=== PATIENT | female | born 1985 | race Two or more races ===

== ENCOUNTER 2017-11-24 10:51 | Emergency (ER) | payer SELFPAY, MEDICAID ==
[2017-11-24 11:14] LABS: URINE HCG POC HCG NEGATIVE (Negative)
[2017-11-24 11:47] LABS: ADD MAN DIFF? NO
[2017-11-24 11:51] LABS: BASO # 0.1 x10^3/uL (0.0-0.2); BASO % 1 % (0-3); EOS # 0.1 x10^3/uL (0.0-0.7); EOS % 2 % (0-3); HEMOGLOBIN 11.5 g/dL (12.0-15.5); LYMPH # 1.4 x10^3/uL (1.0-4.8); LYMPH % 16 % (24-48); MEAN CORPUSCULAR HEMOGLOBIN 29 pg (25-35); MEAN CORPUSCULAR HGB CONC 34 g/dL (31-37); MEAN CORPUSCULAR VOLUME 86 fL (79-100); MONO # 0.4 x10^3/uL (0.0-1.1); MONO % 5 % (0-9); NEUT # 6.4 x10^3uL (1.8-7.7); NEUT % 76 % (31-73); PLATELET COUNT 293 x10^3/uL (140-400); RED BLOOD COUNT 3.98 x10^6/uL (3.50-5.40); RED CELL DISTRIBUTION WIDTH 13.3 % (11.5-14.5); WHITE BLOOD COUNT 8.4 x10^3/uL (4.0-11.0)
[2017-11-24] MEDS: ONDANSETRON PF 4 MG/2 ML VIAL. IV ×2 (11:53)
[2017-11-24] MEDS: FAMOTIDINE 20 MG/2 ML VIAL IVP ×2 (11:54)
[2017-11-24 12:36] LABS: ANION GAP 8 (6-14); BLOOD UREA NITROGEN 13 mg/dL (7-20); BUN/CREATININE RATIO 26 (6-20); CARBON DIOXIDE 27 mmol/L (21-32); CHLORIDE 105 mmol/L (98-107); CREATININE 0.5 mg/dL (0.6-1.0); GFR 143.9; GLUCOSE 106 mg/dL (70-99); POTASSIUM 3.9 mmol/L (3.5-5.1); SODIUM 140 mmol/L (136-145)
[2017-11-24 12:45] LABS: ALBUMIN 3.5 g/dL (3.4-5.0); ALBUMIN/GLOBULIN RATIO 0.8 (1.0-1.7); ALK PHOS 85 U/L (46-116); ALT (SGPT) 52 U/L (14-59); AST (SGOT) 21 U/L (15-37); LIPASE 73 U/L (73-393); TOTAL BILIRUBIN 0.3 mg/dL (0.2-1.0)
[2017-11-24] MEDS: fentaNYL PF VIAL 100 MCG/2 ML VIAL IV ×2 (14:05)
[2017-11-24] MEDS ORDERED: LIDO:MAALOX:DONNATAL 1:1:1 15 ML SINGLE DOSE ×2 (14:38)
[2017-11-24] MEDS: LIDO:MAALOX:DONNATAL 1:1:1 15 ML SINGLE DOSE SWSW ×2 (14:48)
== END 2017-11-24 15:05 | disposition home or self-care (01) ==
LOC: ER 10:51
DX: R10.13 Epigastric pain (principal); R11.2 Nausea with vomiting, unspecified; R19.7 Diarrhea, unspecified
CPT/HCPCS: 36415; 80053; 81025; 83690; 85025; 96374; 96375; 99284-25; J2405; J3010; S0028

== ENCOUNTER 2017-11-24 21:07 | Inpatient (IN) | payer SELFPAY ==
[2017-11-24 21:25] LABS: URINE HCG POC HCG NEGATIVE (Negative)
[2017-11-24 21:37] LABS: BILIRUBIN,URINE NEGATIVE (NEG); CLARITY,URINE CLEAR; COLOR,URINE YELLOW; GLUCOSE,URINE NEGATIVE (NEG); NITRITE,URINE NEGATIVE (NEG); PROTEIN,URINE 30 mg/dL (NEG-TRACE); UROBILINOGEN,URINE 0.2 mg/dL (0.2 mg/dL)
[2017-11-24 21:46] LABS: BACTERIA,URINE FEW /HPF (0-FEW); RBC,URINE RARE /HPF (0-2); SQUAMOUS EPITHELIAL CELL,UR MANY /LPF
[2017-11-24] MEDS: IOHEXOL 300 MG/ML 100ML VIAL. IV ×2 (22:00)
[2017-11-24] MEDS ORDERED: CONTRAST GIVEN MC ×2 (22:00)
[2017-11-24 22:11] LABS: ADD MAN DIFF? NO
[2017-11-24 22:14] LABS: BASO % 0 % (0-3); EOS # 0.1 x10^3/uL (0.0-0.7); EOS % 1 % (0-3); HEMATOCRIT 32.7 % (36.0-47.0); HEMOGLOBIN 10.9 g/dL (12.0-15.5); LYMPH # 1.4 x10^3/uL (1.0-4.8); LYMPH % 13 % (24-48); MEAN CORPUSCULAR HEMOGLOBIN 29 pg (25-35); MEAN CORPUSCULAR HGB CONC 33 g/dL (31-37); MEAN CORPUSCULAR VOLUME 85 fL (79-100); MONO # 0.6 x10^3/uL (0.0-1.1); MONO % 5 % (0-9); NEUT # 8.7 x10^3uL (1.8-7.7); NEUT % 80 % (31-73); PLATELET COUNT 275 x10^3/uL (140-400); RED BLOOD COUNT 3.82 x10^6/uL (3.50-5.40); RED CELL DISTRIBUTION WIDTH 13.3 % (11.5-14.5); WHITE BLOOD COUNT 10.8 x10^3/uL (4.0-11.0)
[2017-11-24] MEDS: IV NORMAL SALINE 1000ML BAG 1,000 ML IV ×2 (22:33)
[2017-11-24] MEDS: ONDANSETRON PF 4 MG/2 ML VIAL. IV ×2 (22:34)
[2017-11-24 22:37] LABS: AST (SGOT) 20 U/L (15-37)
[2017-11-24] MEDS: fentaNYL PF VIAL 100 MCG/2 ML VIAL IV ×2 (22:37)
[2017-11-24 22:38] LABS: ALBUMIN 3.4 g/dL (3.4-5.0); ALBUMIN/GLOBULIN RATIO 0.8 (1.0-1.7); ALK PHOS 83 U/L (46-116); ALT (SGPT) 51 U/L (14-59); ANION GAP 11 (6-14); BLOOD UREA NITROGEN 11 mg/dL (7-20); BUN/CREATININE RATIO 18 (6-20); CALCIUM 8.8 mg/dL (8.5-10.1); CARBON DIOXIDE 24 mmol/L (21-32); CHLORIDE 102 mmol/L (98-107); CREATININE 0.6 mg/dL (0.6-1.0); GFR 116.6; GLUCOSE 149 mg/dL (70-99); LIPASE 61 U/L (73-393); POTASSIUM 3.6 mmol/L (3.5-5.1); SODIUM 137 mmol/L (136-145); TOTAL BILIRUBIN 0.4 mg/dL (0.2-1.0); TOTAL PROTEIN 7.7 g/dL (6.4-8.2)
[2017-11-24] MEDS: LIDO:MAALOX:DONNATAL 1:1:1 15 ML SINGLE DOSE SWSW ×2 (22:39)
[2017-11-24] MEDS: FAMOTIDINE 20 MG TABLET. PO ×2 (22:39)
[2017-11-24] MEDS: PANTOPRAZOLE IV PUSH 40 MG VIAL. IVP ×2 (22:41)
[2017-11-25] MEDS: fentaNYL PF VIAL 100 MCG/2 ML VIAL IV ×14 (01:28→16:10)
[2017-11-25] MEDS: PIPERACILLIN/TAZOBACTAM 3.375 GM in IV NORMAL SALINE 50ML 50 ML IV (01:28)
[2017-11-25] MEDS: ONDANSETRON PF 4 MG/2 ML VIAL. IV ×2 (01:28)
[2017-11-25 04:52] LABS: ADD MAN DIFF? NO
[2017-11-25 04:57] LABS: BASO % 0 % (0-3); EOS # 0.2 x10^3/uL (0.0-0.7); EOS % 2 % (0-3); HEMATOCRIT 30.3 % (36.0-47.0); HEMOGLOBIN 10.4 g/dL (12.0-15.5); LYMPH % 20 % (24-48); MEAN CORPUSCULAR HEMOGLOBIN 30 pg (25-35); MEAN CORPUSCULAR HGB CONC 34 g/dL (31-37); MEAN CORPUSCULAR VOLUME 86 fL (79-100); MONO # 0.6 x10^3/uL (0.0-1.1); MONO % 7 % (0-9); NEUT # 6.8 x10^3uL (1.8-7.7); NEUT % 71 % (31-73); PLATELET COUNT 251 x10^3/uL (140-400); RED BLOOD COUNT 3.54 x10^6/uL (3.50-5.40); RED CELL DISTRIBUTION WIDTH 13.7 % (11.5-14.5); WHITE BLOOD COUNT 9.6 x10^3/uL (4.0-11.0)
[2017-11-25 05:12] LABS: ANION GAP 7 (6-14); BLOOD UREA NITROGEN 10 mg/dL (7-20); CALCIUM 7.9 mg/dL (8.5-10.1); CARBON DIOXIDE 26 mmol/L (21-32); CHLORIDE 103 mmol/L (98-107); CREATININE 0.5 mg/dL (0.6-1.0); GFR 143.9; GLUCOSE 119 mg/dL (70-99); POTASSIUM 3.7 mmol/L (3.5-5.1); SODIUM 136 mmol/L (136-145)
[2017-11-25] MEDS ORDERED: fentaNYL PF VIAL 100 MCG/2 ML VIAL IV ×2 (07:15)
[2017-11-25] MEDS ORDERED: MORPHINE SULFATE 2 MG/ML DISP.SYRIN. IV ×2 (07:15)
[2017-11-25] MEDS ORDERED: PROCHLORPERAZINE 10 MG/2 ML VIAL. IV ×2 (07:15)
[2017-11-25] MEDS ORDERED: ONDANSETRON PF 4 MG/2 ML VIAL. IV ×2 (07:15)
[2017-11-25] MEDS ORDERED: LIDOCAINE 1% PF 2 ML VIAL. ID ×2 (07:15)
[2017-11-25] MEDS ORDERED: HYDROmorphone 2 MG/ML VIAL IV ×2 (07:15)
[2017-11-25] MEDS ORDERED: SURGICEL HEMOSTAT 4X8 EACH. ×2 (07:46)
[2017-11-25] MEDS: IV RINGERS,LACTATED 1000ML 1,000 ML IV ×2 (09:14)
[2017-11-25] MEDS ORDERED: LIDOCAINE 2% PF Vial for OR 5 ML VIAL. ×2 (09:23)
[2017-11-25] MEDS ORDERED: ROCURONIUM 50 MG/5 ML VIAL. ×2 (09:23)
[2017-11-25] MEDS ORDERED: SUCCINYLCHOLINE 200 MG/10 ML VIAL. ×2 (09:23)
[2017-11-25] MEDS ORDERED: PROPOFOL 20 ML IV ×2 (09:23)
[2017-11-25] MEDS ORDERED: DEXAMETHASONE SOD PHOS 20 MG/5 ML VIAL. ×2 (09:23)
[2017-11-25] MEDS ORDERED: MIDAZOLAM HCL/PF 2 MG/2 ML VIAL. ×2 (09:24)
[2017-11-25] MEDS ORDERED: fentaNYL PF VIAL 100 MCG/2 ML VIAL ×4 (09:24→12:12)
[2017-11-25] MEDS ORDERED: PHENYLEPHRINE in 0.9% NACL PF 1 MG/10 ML SYRINGE. IV (10:24)
[2017-11-25] MEDS ORDERED: FAMOTIDINE 20 MG/2 ML VIAL ×2 (10:24)
[2017-11-25] MEDS: BUPIVACAINE-EPI 0.25%-1:200000 50 ML VIAL. ×2 (10:54)
[2017-11-25] MEDS: IOHEXOL 300 MG/ML 100ML VIAL. ×2 (10:57)
[2017-11-25] MEDS ORDERED: DESFLURANE 61 TO 120 MINUTES IH ×2 (11:14)
[2017-11-25] MEDS ORDERED: DESFLURANE 31 TO 60 MINUTES IH ×2 (11:14)
[2017-11-25] MEDS ORDERED: NEOSTIGMINE METHYLSULFATE 5 MG/5 ML SYRINGE. ×2 (11:22)
[2017-11-25] MEDS ORDERED: GLYCOPYRROLATE 1 MG/5 ML VIAL. ×2 (11:22)
[2017-11-25] MEDS ORDERED: MORPHINE SULFATE 10 MG/ML VIAL. ×2 (11:30)
[2017-11-25] MEDS ORDERED: KETOROLAC 30 MG/ML INJ FOR OR. INJ ×2 (11:34)
[2017-11-25] MEDS: oxyCODONE/APAP 5/325 1 TAB TABLET PO ×6 (14:42→21:55)
[2017-11-26] MEDS: oxyCODONE/APAP 5/325 1 TAB TABLET PO ×10 (03:11→23:08)
[2017-11-26] MEDS ORDERED: hydrALAZINE 20 MG/ML VIAL. IVP ×2 (12:45)
[2017-11-26] MEDS ORDERED: traMADol 50 MG TABLET PO ×2 (12:45)
[2017-11-26] MEDS: MORPHINE SULFATE 2 MG/ML DISP.SYRIN. IV ×6 (13:01→23:09)
[2017-11-26] MEDS: DOCUSATE SODIUM 100 MG CAPSULE. PO ×2 (13:01)
[2017-11-27] MEDS: MORPHINE SULFATE 2 MG/ML DISP.SYRIN. IV ×2 (03:11)
[2017-11-27] MEDS: oxyCODONE/APAP 5/325 1 TAB TABLET PO ×6 (03:12→20:36)
[2017-11-27 05:26] LABS: ADD MAN DIFF? NO
[2017-11-27 05:27] LABS: BASO % 1 % (0-3); EOS # 0.2 x10^3/uL (0.0-0.7); EOS % 3 % (0-3); HEMATOCRIT 29.6 % (36.0-47.0); HEMOGLOBIN 10.2 g/dL (12.0-15.5); LYMPH # 2.9 x10^3/uL (1.0-4.8); LYMPH % 34 % (24-48); MEAN CORPUSCULAR HEMOGLOBIN 30 pg (25-35); MEAN CORPUSCULAR HGB CONC 34 g/dL (31-37); MEAN CORPUSCULAR VOLUME 86 fL (79-100); MONO # 0.5 x10^3/uL (0.0-1.1); MONO % 6 % (0-9); NEUT # 4.7 x10^3uL (1.8-7.7); NEUT % 56 % (31-73); PLATELET COUNT 248 x10^3/uL (140-400); RED BLOOD COUNT 3.43 x10^6/uL (3.50-5.40); RED CELL DISTRIBUTION WIDTH 13.8 % (11.5-14.5); WHITE BLOOD COUNT 8.4 x10^3/uL (4.0-11.0)
[2017-11-27 06:01] LABS: ANION GAP 7 (6-14); BLOOD UREA NITROGEN 17 mg/dL (7-20); CALCIUM 8.3 mg/dL (8.5-10.1); CARBON DIOXIDE 28 mmol/L (21-32); CHLORIDE 103 mmol/L (98-107); CREATININE 0.7 mg/dL (0.6-1.0); GFR 97.6; GLUCOSE 95 mg/dL (70-99); POTASSIUM 3.5 mmol/L (3.5-5.1); SODIUM 138 mmol/L (136-145)
[2017-11-27] MEDS: ONDANSETRON PF 4 MG/2 ML VIAL. IV ×4 (10:34→20:35)
[2017-11-27] MEDS: POTASSIUM CL 20MEQ D5-0.9%NACL 1,000 ML IV ×2 (14:18)
[2017-11-28] MEDS: POTASSIUM CL 20MEQ D5-0.9%NACL 1,000 ML IV ×4 (01:02→19:36)
[2017-11-28] MEDS: oxyCODONE/APAP 5/325 1 TAB TABLET PO ×6 (01:02→19:37)
[2017-11-28] MEDS: ACETAMINOPHEN 325 MG TABLET. PO ×2 (12:07)
[2017-11-29] MEDS: oxyCODONE/APAP 5/325 1 TAB TABLET PO ×6 (01:22→12:14)
[2017-11-29] MEDS: POTASSIUM CL 20MEQ D5-0.9%NACL 1,000 ML IV ×2 (05:35)
== END 2017-11-29 13:00 | disposition home or self-care (01) | DRG 418 ==
LOC: 4 NORTH 11-25 00:10 → ER 21:07
PROC: 0FT44ZZ Resection of Gallbladder, Percutaneous Endoscopic Approach (ICD-10-PCS; principal; 2017-11-25 10:00)
PROC: 0DTJ4ZZ Resection of Appendix, Percutaneous Endoscopic Approach (ICD-10-PCS; 2017-11-25 10:00)
PROC: BF131ZZ Fluoroscopy of Gallbladder and Bile Ducts using Low Osmolar Contrast (ICD-10-PCS; 2017-11-25 10:00)
DX: K80.00 Calculus of gallbladder with acute cholecystitis without obstruction (principal); N39.0 Urinary tract infection, site not specified; K35.80 Unspecified acute appendicitis; E66.9 Obesity, unspecified; K59.00 Constipation, unspecified; J02.9 Acute pharyngitis, unspecified; K36 Other appendicitis; Z68.39 Body mass index [BMI] 39.0-39.9, adult
CPT/HCPCS: 36415; 74177; 74300; 76705; 80048; 80053; 81001; 81025; 83690; 85025; 87086; 88304; 96374; 96375; 99285; 99285-25; C1769; C9113; J0330; J0690; J1100; J1885; J2250; J2270; J2370; J2405; J2543; J2704; J2710; J3010; J3490; J7030; J7120; Q9967; S0028

== ENCOUNTER 2021-05-10 12:24 | Emergency (ER) | payer SELFPAY ==
[~2021-05-10] VITALS: Ht 160 cm; Wt 90.0 kg
[~2021-05-10 12:24] MED LIST changes: -HYDR-2761 PO; -HYDROmorphone 2 MG/ML VIAL IVP PRN; -IV RINGERS,LACTATED 1000ML 1,000 ML IV SCH; -LIDOCAINE 2% PF 5 ML VIAL. ONE; -MORPHINE SULFATE 2 MG/ML INJ. IVP PRN; -PROCHLORPERAZINE 10 MG/2 ML VIAL. IVP PRN; -PROPOFOL 10 MG/ML (20ML) VIAL. IV ONE; -fentaNYL PF VIAL 100 MCG/2 ML VIAL IVP PRN
[2021-05-10 13:57] LABS: BASO # 0.1 x10^3/uL (0.0-0.2); BASO % 1 % (0-3); EOS # 0.1 x10^3/uL (0.0-0.7); EOS % 1 % (0-3); HEMATOCRIT 28.6 % (36.0-47.0); HEMOGLOBIN 8.6 g/dL (12.0-15.5); LYMPH # 2.5 x10^3/uL (1.0-4.8); LYMPH % 18 % (24-48); MEAN CORPUSCULAR HEMOGLOBIN 20 pg (25-35); MEAN CORPUSCULAR HGB CONC 30 g/dL (31-37); MEAN CORPUSCULAR VOLUME 66 fL (79-100); MONO # 0.7 x10^3/uL (0.0-1.1); MONO % 5 % (0-9); NEUT # 10.4 x10^3/uL (1.8-7.7); NEUT % 76 % (31-73); PLATELET COUNT 669 x10^3/uL (140-400); RED BLOOD COUNT 4.33 x10^6/uL (3.50-5.40); RED CELL DISTRIBUTION WIDTH 17.7 % (11.5-14.5); WHITE BLOOD COUNT 13.7 x10^3/uL (4.0-11.0)
[2021-05-10 14:08] LABS: CALCIUM 8.6 mg/dL (8.5-10.1); CREATININE 0.8 mg/dL (0.6-1.0); GFR 81.6
[2021-05-10 14:14] LABS: ALBUMIN 2.4 g/dL (3.4-5.0); ALBUMIN/GLOBULIN RATIO 0.5 (1.0-1.7); TOTAL BILIRUBIN 0.5 mg/dL (0.2-1.0); TOTAL PROTEIN 7.7 g/dL (6.4-8.2)
[2021-05-10 14:19] LABS: PLT ESTIMATE INCREASED (ADEQUATE)
[2021-05-10 14:20] LABS: ANISOCYTOSIS SLIGHT; HYPOCHROMIA MARKED; MICROCYTOSIS MARKED; OVALOCYTES FEW; POIKILOCYTOSIS SLIGHT
[2021-05-10] MEDS ORDERED: IOHEXOL 300 MG/ML 100ML VIAL. IV ONE (14:30)
[2021-05-10] MEDS ORDERED: CONTRAST GIVEN. MC PRN (14:30)
--- NOTE | 2021-05-10 15:12 | RAD ---
Exam: CT of abdomen and pelvis with contrast INDICATION: Acute onset intractable abdominal pain TECHNIQUE: Sequential axial images through the abdomen and pelvis obtained following the administrati on of 75 mL of Omni 300 IV contrast. Sagittal and coronal reformatted images were reconstructed from the axial data and reviewed. Exposure: One or more of the following in the visualized dose reduction techniques were utilized for this examination: 1. Automated exposure control 2. Adjustment of the MA and/or KV according to patient size 3. Use of iterative of reconstructive technique Comparisons: 11/24/2027 FINDINGS: Heart size is normal. No pericardial effusion. Visualized lung bases are clear. No pleural effusion. Liver, spleen, pancreas, and adrenals are unremarkable. Gallbladder is absent. No perinephric inflammation or hydronephrosis. No renal or ureteral calculi are identified. Bladder is decompressed not well evaluated. Uterus is not enlarged. No abnormal adnexal mass. There is wall thickening involving the sigmoid colon without evidence of acute diverticulitis. Remain [place] of the large and small bowel are unremarkable. Appendix is not identified. No free intra-abdomina l air or fluid. No obstruction. Abdominal aorta has a normal course and caliber. Abdominal vasculature is patent. No enlarged intra-abdominal lymph nodes are identified. No suspicious osseous lesions or acute fractures. IMPRESSION: Wall thickening at the sigmoid colon may represent colitis may be infectious or inflammatory in etiol ogy. Electronically signed by: Elaine Ch MD (05/10/2021 3:10 PM) [facility]
[2021-05-10] MEDS ORDERED: fentaNYL PF VIAL 100 MCG/2 ML VIAL IVP ONE (15:30)
[2021-05-10] MEDS ORDERED: IV NORMAL SALINE 500ML BAG 500 ML IV ONE (15:30)
[2021-05-10 16:22] VITALS: BP 124/59
[2021-05-10] MEDS ORDERED: HYDR-2761 PO (17:02)
--- NOTE | 2021-05-10 17:05 | PHYS DOC ---
Past Medical History Past Medical History: No Pertinent History Additional Past Medical Histor: Crohns disease, rheumatoid arthritis (JAQUELIN DE LEÓN APRN) Past Surgical History: Cholecystectomy (JAQUELIN DE LEÓN APRN) Smoking Status: Never Smoker Alcohol Use: None Drug Use: None (JAQUELIN DE LEÓN APRN) General Adult EDM: Chief Complaint: ABDOMINAL PAIN HPI: HPI: Patient is a 36-year-old female who presents to the emergency for increased abdominal pain after colonoscopy procedure today with GI specialist Dr. Vidal at the outpatient clinic. Patient reports she had a colonoscopy to evaluate her anemia and colitis issues, states that her primary care physician Dr. Trevino have sent her for this GI procedure. Patient denies taking any prescription medications at home, denies any allergies to medications. Reports her last menstrual cycle was 2 weeks ago with normal duration of flow. Denies urinary pressure, pain with urination, or bloody urination. Patient denies vaginal discharge or rashes in her vaginal area. Patient denies chest pain, denies shortness of breath, denies recent fever or chills. Patient states she feels like she might be dehydrated from her bowel prep procedure at home to get ready for her upper and lower GI. Patient reports her pain is a 10 out of 10. Patient denies any nausea. Patient reports her pain hurts all over her abdomen. Patient denies any other physical complaints or physical concerns. (JAQUELIN DE LEÓN APRN) Review of Systems: Review of Systems: 14 body systems of review of systems have been reviewed. See HPI for pertinent positives and negative responses, otherwise all other systems are negative, nonpertinent or noncontributory. Constitutional: Negative except as outlined in HPI above. Skin: Negative except as outlined in HPI above. Eyes: Negative except as outlined in HPI above. HENT: Negative except as outlined in HPI above. Respiratory: Negative except as outlined in HPI above. Cardiovascular: Negative except as outlined in HPI above. GI: Negative except as outlined in HPI above. : Negative except as outlined in HPI above. Musculoskeletal: Negative except as outlined in HPI above. Integument: Negative except as outlined in HPI above. Neurologic: Negative except as outlined in HPI above. Endocrine: Negative except as outlined in HPI above. Lymphatic: Negative except as outlined in HPI above. Psychiatric: Negative except as outlined in HPI above. (JAQUELIN DE LEÓN APRN) Heart Score: C/O Chest Pain: No Risk Factors: Risk Factors: DM, Current or recent (<one month) smoker, HTN, HLP, family history of CAD, obesity. Risk Scores: Score 0 - 3: 2.5% MACE over next 6 weeks - Discharge Home Score 4 - 6: 20.3% MACE over next 6 weeks - Admit for Clinical Observation Score 7 - 10: 72.7% MACE over next 6 weeks - Early Invasive Strategies (JAQUELIN DE LEÓN APRN) Current Medications: Current Medications Medications (Trade) Dose Ordered Sig/Dianna Start Time Stop Time Status Last Admin Dose Admin Fentanyl Citrate (Fentanyl 2ml Vial) 75 mcg 1X ONCE 05/10/21 15:30 05/10/21 15:31 DC 05/10/21 15:45 75 MCG Info (CONTRAST GIVEN -- Rx MONITORING) 1 each PRN DAILY PRN 05/10/21 14:30 05/12/21 14:29 Iohexol (Omnipaque 300 Mg/ml) 75 ml 1X ONCE 05/10/21 14:30 05/10/21 14:31 DC 05/10/21 14:29 75 ML Sodium Chloride 500 ml @ 500 mls/hr 1X ONCE 05/10/21 15:30 05/10/21 16:29 DC 05/10/21 15:45 500 MLS/HR (JAQUELIN DE LEÓN APRN) Allergies: Allergies: Allergies Coded Allergies Type Severity Reaction Last Updated Verified No Known Drug Allergies 05/10/21 No (JAQUELIN DE LEÓN APRN) Physical Exam: PE: Constitutional: Well developed, well nourished, non-toxic appearance. 36-year-old female appears uncomfortable, holding her abdomen, but remains non toxic in appearance HENT: Normocephalic, atraumatic. Eyes: Conjunctiva normal, no discharge. Neck: Normal range of motion. Cardiovascular: Distal cap refill less than 2 seconds, no cyanosis appreciated. Lungs & Thorax: Patient is in no respiratory distress, no adventitious lung sounds appreciated. Abdomen: Bowel sounds hyperactive, soft, no masses, no pulsatile masses. No bruising or skin discoloration of the abdomen. Generalized abdominal pain all 4 quadrants, McBurney's point/psoas sign/South sign/rebound tenderness signed nonspecific, positive pain to palpation all quadrants however no masses appreciated, bowel sounds were hyperactive. Skin: Warm, dry, no erythema, no rash. Back: No tenderness, no CVA tenderness. Extremities: No tenderness, no cyanosis, no clubbing, ROM intact, no edema. Neurologic: Alert and oriented X 3, normal motor function, normal sensory function, no focal deficits noted. Psychologic: Affect normal, judgement normal, mood normal. (JAQUELIN DE LEÓN APRN) Current Patient Data: Labs: Laboratory Tests Test 05/10/21 13:20 White Blood Count 13.7 x10^3/uL (4.0-11.0) H Red Blood Count 4.33 x10^6/uL (3.50-5.40) Hemoglobin 8.6 g/dL (12.0-15.5) L Hematocrit 28.6 % (36.0-47.0) L Mean Corpuscular Volume 66 fL (79-100) L Mean Corpuscular Hemoglobin 20 pg (25-35) L Mean Corpuscular Hemoglobin Concent 30 g/dL (31-37) L Red Cell Distribution Width 17.7 % (11.5-14.5) H Platelet Count 669 x10^3/uL (140-400) H Neutrophils (%) (Auto) 76 % (31-73) H Lymphocytes (%) (Auto) 18 % (24-48) L Monocytes (%) (Auto) 5 % (0-9) Eosinophils (%) (Auto) 1 % (0-3) Basophils (%) (Auto) 1 % (0-3) Neutrophils # (Auto) 10.4 x10^3/uL (1.8-7.7) H Lymphocytes # (Auto) 2.5 x10^3/uL (1.0-4.8) Monocytes # (Auto) 0.7 x10^3/uL (0.0-1.1) Eosinophils # (Auto) 0.1 x10^3/uL (0.0-0.7) Basophils # (Auto) 0.1 x10^3/uL (0.0-0.2) Platelet Estimate Increased (ADEQUATE) Hypochromasia Marked Poikilocytosis Slight Anisocytosis Slight Microcytosis Marked Ovalocytes Few Sodium Level 133 mmol/L (136-145) L Potassium Level 4.0 mmol/L (3.5-5.1) Chloride Level 98 mmol/L (98-107) Carbon Dioxide Level 25 mmol/L (21-32) Anion Gap 10 (6-14) Blood Urea Nitrogen 7 mg/dL (7-20) Creatinine 0.8 mg/dL (0.6-1.0) Estimated GFR (Cockcroft-Gault) 81.6 BUN/Creatinine Ratio 9 (6-20) Glucose Level 96 mg/dL (70-99) Calcium Level 8.6 mg/dL (8.5-10.1) Total Bilirubin 0.5 mg/dL (0.2-1.0) Aspartate Amino Transferase (AST) 22 U/L (15-37) Alanine Aminotransferase (ALT) 91 U/L (14-59) H Alkaline Phosphatase 161 U/L (46-116) H Troponin I Quantitative < 0.017 ng/mL (0.000-0.055) Total Protein 7.7 g/dL (6.4-8.2) Albumin 2.4 g/dL (3.4-5.0) L Albumin/Globulin Ratio 0.5 (1.0-1.7) L Lipase 47 U/L (73-393) L Laboratory Tests 05/10/21 13:20 Laboratory Tests 05/10/21 13:20 Vital Signs: Vital Signs Date Time Temp Pulse Resp B/P (MAP) Pulse Ox O2 Delivery O2 Flow Rate FiO2 05/10/21 16:22 98 124/59 (80) 99 Room Air 05/10/21 12:37 98.3 22 98.3 (JAQUELIN DE LEÓN APRN) EKG: EKG: EKG performed at 1316 by ED nursing staff shows a normal sinus rhythm without other ectopy, KS interval 0.134, QTc interval 0.428, heart rate 96 bpm, no acute STEMI, no ACS, no acute ischemia appreciated, EKG interpreted by ED attending physician Dr. Nixon. (JAQUELIN DE LEÓN APRN) Radiology/Procedures: Radiology/Procedures: PATIENT: DORIS FERREIRACCOUNT: [id number] : 1985 LOCATION: ER AGE: 36 SEX: F EXAM STATUS: REG ER ORD. PHYSICIAN: JAQUELIN DE LEÓN APRN REASON: Acute onset intractable abdominal pain after EGD/colonoscopy procedure toda PROCEDURE: CT ABD PELV W/ IV CONTRST ONLY Exam: CT of abdomen and pelvis with contrast INDICATION: Acute onset intractable abdominal pain TECHNIQUE: Sequential axial images through the abdomen and pelvis obtained following the administration of 75 mL of Omni 300 IV contrast. Sagittal and coronal reformatted images were reconstructed from the axial data and reviewed. Exposure: One or more of the following in the visualized dose reduction techniques were utilized for this examination: 1. Automated exposure control 2. Adjustment of the MA and/or KV according to patient size 3. Use of iterative of reconstructive technique Comparisons: 11/24/2027 FINDINGS: Heart size is normal. No pericardial effusion. Visualized lung bases are clear. No pleural effusion. Liver, spleen, pancreas, and adrenals are unremarkable. Gallbladder is absent. No perinephric inflammation or hydronephrosis. No renal or ureteral calculi are identified. Bladder is decompressed not well evaluated. Uterus is not enlarged. No abnormal adnexal mass. There is wall thickening involving the sigmoid colon without evidence of acute diverticulitis. Remainder of the large and small bowel are unremarkable. Appendix is not identified. No free intra-abdominal air or fluid. No obstruction. Abdominal aorta has a normal course and caliber. Abdominal vasculature is patent. No enlarged intra-abdominal lymph nodes are identified. No suspicious osseous lesions or acute fractures. IMPRESSION: Wall thickening at the sigmoid colon may represent colitis may be infectious or inflammatory in etiology. Electronically signed by: Elaine Truong MD (05/10/2021 3:10 PM) [facility] DICTATED and SIGNED BY: ELAINE TRUONG MD DATE: 05/10/21 [id number] 0 (JAQUELIN DE LEÓN APRN) Course & Med Decision Making: Course & Med Decision Making Pertinent Labs and Imaging studies reviewed. (See chart for details) 36-year-old female, vital signs reviewed, presents to the emergency department with acute onset abdominal pain after colonoscopy. Physical examination concerning for possible bowel perforation, will order CT abdomen pelvis with IV contrast to rule out for bowel prep EGD/colonoscopy procedure done just prior to arrival. EKG, serum labs, urinalysis assay. CT abdomen pelvis nonconcerning for acute bowel perforation, consistent with patient's history of colitis. Lab work nonconcerning. Patient did not give u rinalysis specimen for urinalysis assay, patient was given 1 L of normal saline as labs indicated mild dehydration most likely from bowel prep procedure, fentanyl IV pain medication, this relieved patient's pain to a 0 out of 10 and patient states she is ready to go home. Abdominal pain most likely related to EGD/colonoscopy procedure. Upon reevaluation of the patient, patient remains nontoxic in appearance, is now calm and comfortable in bed, denies any nausea. Discussed with patient will discharge to home with close follow-up with her primary care physician Dr. Acevedo tomorrow or Friday, strict return to ER precautions and concerns. Patient was amenable to this plan. Discussed with th e patient all findings and diagnostic testing as well as the need to follow-up with their primary care provider for further evaluation and treatment or return to the ED if any new or worsening symptoms. Strict return precautions were also discussed at length, the patient voiced understanding and agreement with the discharge planning. The patient was nontoxic in appearance, in no apparent distress, and hemodynamically stable at the time of disposition. (JAQUELIN DE LEÓN APRN) C2C Link Disclaimer: C2C Link Disclaimer: This electronic medical record was generated, in whole or in part, using a voice recognition dictation system. (JAQUELIN DE LEÓN APRN) Departure Departure Impression: Primary Impression: Abdominal pain Qualified Codes: R10.84 - Generalized abdominal pain Disposition: HOME / SELF CARE / HOMELESS Condition: GOOD Referrals: NO PCP (PCP) Patient Instructions: Abdominal Migraine Additional Instructions: You were seen today in the emergency department for abdominal pain after your EGD and colonoscopy procedure. A extensive abdominal work-up was performed in the emergency department, the CT scan of your abdomen did not show any concerning signs of a bowel perforation or any need for immediate surgery. You are lab work did indicate mild dehydration which is most likely related to your bowel prep procedure as we discussed at length about. You were given a liter of normal saline and IV pain medication which relieved your pain. You are reporting no pain or nausea at this time and wished to go home. I feel it is safe for you to go home however I do believe your pain may come back at some level and recommend you take [id number] Tylenol or Motrin for this pain. I am prescribing you a few pain medication pills for severe pain. Please return to the emergency department immediately for increased severe pain that is unrelieved by oral medications or rectal bleeding or sudden onset of nausea or bloody vomitus. Please follow-up with your primary care physician Dr. Acevedo either tomorrow or Friday thank you for visiting our Emergency Department. It was a pleasure taking care of you today in the emergency department and we appreciate you trusting us with your care. If any additional problems come up don't hesitate to return to visit us. Please follow up with your primary care provider so they can plan additional care if needed and know about the problem that you had. If symptoms worsen come back to the Emergency Department. Any concerning symptoms that start such as chest pain, shortness of air, weakness or numbness on one side of the body, running high fevers or any other concerning symptoms return to the ER. EMERGENCY DEPARTMENT GENERAL DISCHARGE INSTRUCTIONS Thank you for coming to [facility] (ED) today and trusting us with you care. We trust that you had a positive experience in our Emergency Department. If you wish to speak to the department management, you may call the Director at [phone]. YOUR FOLLOW UP INSTRUCTIONS ARE FOLLOWS: 1. Do you have a private Doctor? If you do not have a private doctor, please ask for a resource list of physicians or clinics that may be able to assist you with follow up care. 2. The Emergency Physicain has interpreted your x-rays. The X-Ray specialist will also review them. If there is a change in the findings, you will be notified in 48 hours when at all possible. 3. A lab test or culture has been done, your results will be reviewed and you will be notified if you need a change in treatment. ADDITIONAL INSTRUCTIONS AND INFORMATION: 1. Your care today has been supervised by a physician who is specially trained in emergency care. Many problems require more than one evaluation for a complete diagnosis and treatment. We recommend that you schedule your follow up appointment as recommended to ensure complete treatment of you illness or injury. If you are unable to obtain follow up care and continue to have a problem, or if your condition worsens, we recommend that you return to the ED. 2. We are not able to safely determine your condition over the phone nor are we able to give sound medical advice over the phone. For these safety reasons, if you call for medical advice we will ask you to come to the ED for further evaluation. 3. If you have any questions regarding these discharge instructions please call the ED at [phone]. SAFETY INFORMATION: In the interest of safety, wellness, and injury prevention; we encourage you to wear your sealbelt, if you smoke; quite smoking, and we encourage family to use a protective helmet for bicycling and other sporting events that present an increased risk for head injury. IF YOUR SYMPTOMS WORSEN OR NEW SYMPTOMS DEVELOP, OR YOU HAVE CONCERNS ABOUT YOUR CONDITION; OR IF YOUR CONDITION WORSENS WHILE YOU ARE WAITING FOR YOUR FOLLOW UP APPOINTMENT; EITHER CONTACT YOUR PRIMARY CARE DOCTOR, THE PHYSICIAN WHOSE NAME AND NUMBER YOU WERE GIVEN, OR RETURN TO THE ED IMMEDIATELY. Scripts Hydrocodone Bit/Acetaminophen (HYDROCODONE-APAP 5-325 ) 1 Tab Tablet 1 TAB PO PRN Q6HRS PRN for SEVERE PAIN 7-10, #10 TAB 0 Refills Prov: JAQUELIN DE LEÓN APRN 05/10/21 Attending Signature I have participated in the care of this patient and I have reviewed and agree with all pertinent clinical information above including history, exam, and recommendations. (CIERA PALOMARES DO) JAQUELIN DE LEÓN APRN May 10, 2021 17:05 CIERA PALOMARES DO May 10, 2021 17:17
== END 2021-05-10 17:23 | disposition home or self-care (01) ==
LOC: ER 12:24
DX: R10.84 Generalized abdominal pain (principal); Z90.49 Acquired absence of other specified parts of digestive tract
CPT/HCPCS: 36415; 74177; 80053; 83690; 84484; 85025; 93005; 96361; 96374; 99285; J3010; J7040; Q9967

== ENCOUNTER → 2021-05-10 | Day surgery (SDC) | payer SELFPAY ==
[~2021-05-10] VITALS: Ht 167.6 cm; Wt 90.0 kg
[~2021-05-10] MED LIST: HYDR-2761 PO; HYDR-3135 PO; HYDROmorphone 2 MG/ML VIAL IVP PRN; IBUP-1027 PO; IV RINGERS,LACTATED 1000ML 1,000 ML IV SCH; LIDOCAINE 2% PF 5 ML VIAL. ONE; MORPHINE SULFATE 2 MG/ML INJ. IVP PRN; ONDA4TAB7 PO; PROCHLORPERAZINE 10 MG/2 ML VIAL. IVP PRN; PROPOFOL 10 MG/ML (20ML) VIAL. IV ONE; fentaNYL PF VIAL 100 MCG/2 ML VIAL IVP PRN
[2021-05-10 10:19] VITALS: BP 109/67
[2021-05-10 11:41] VITALS: BP 115/63
--- NOTE | 2021-05-10 12:00 | PDOC ---
Date of Service: DATE: 05/10/21 TIME: 11:57 Subjective: Subjective: feels weak Objective: Vital Signs: Vital Signs Date Time Temp Pulse Resp B/P (MAP) Pulse Ox O2 Delivery O2 Flow Rate FiO2 05/10/21 11:41 97.3 81 20 115/63 99 Room Air 97.3 Labs: Laboratory Tests Test 05/10/21 09:26 05/10/21 09:54 Bedside Urine HCG, Qualitative Hcg negative (Negative) SARS-CoV-2 Antigen (Rapid) Negative (NEGATIVE) Physical Exam: Physical Exam: GEN: NAD HEENT: OP clear CV: S1S2 without murmurs, rubs, or gallops RESP: CTAB without wheezing, rhonchi, or crackles ABD: NABS, SNT/ND EXT: No edema NEURO: AAO x 3 Assessment & Plan: Assessment : anemia Plan: EGD and colon today significant for colitis. She and her stated that she had labs drawn with her PCP three days ago b ut do not kno0w results. I asked if she would rather stay in the hospital or if she feels that she can go home. She and her want to discuss privately. I have advised that they go through the ER if she does not feel well to go home is that she can get labs and possibly a CT done. Discussed with nursing Justicifation of Admission Dx: Justifications for Admission: Justification of Admission Dx: N/A FLORENTINO BENJAMIN MD May 10, 2021 12:00
--- NOTE | 2021-05-14 09:09 | PATHOLOGY ---
[facility] Accession Number: [id number] . 01 Material submitted: . PART A: small bowel - SMALL BOWEL BIOPSY PART B: ANTRUM - BX BODY AND ANTRUM. Modifiers: body PART C: esophagus - DISTAL ESOPHAGUS BX. Modifiers: distal PART D: ileum - BX TERMINAL ILEUM. Modifiers: TERMINAL PART E: cecum - CECAL BX PART F: colon - ASCENDING COLON BX. Modifiers: ascending PART G: colon - TRANSVERSE COLON BX. Modifiers: transverse PART H: colon - DESCENDING COLON BX. Modifiers: descending PART I: sigmoid colon - SIGMOID COLON BX PART J: rectum - RECTAL BX . 01 Clinical history: . ANEMIA EGD, COLONOSCOPY COLITIS . 02 Diagnosis: A. Small bowel biopsies: - No significant pathologic abnormalities. . B. Gastric biopsies, gastric body and gastric antrum: - Chronic gastritis, mild. . C. Esophageal biopsies, distal esophagus: - Segments of esophagogastric and gastric mucosa showing chronic inflammation, consistent with reflux changes. . D. Small intestine mucosa, terminal ileum biopsies: - No diagnostic abnormalities. . E. Colonic mucosa, cecal biopsy: - No significant pathologic abnormalities. . F. Colonic mucosa, ascending colon biopsies: - Focal active chronic colitis, mild to moderate, without granulomas or specific features. . G. Colonic mucosa, transverse colon biopsy: - No significant pathologic abnormalities. . H. Colonic mucosa, descending colon biopsies: - Active chronic colitis, moderate, without granulomas or specific features. . I. Colonic mucosa, sigmoid colon biopsy: - Active chronic colitis, marked, without granulomas or specific features, and with extensive ulceration. . J. Colorectal mucosa, rectal biopsy: - Active chronic proctitis, moderate, without granulomas or specific features. LBQ 05/14/2021 0808 Local . 02 Comment: Sections of the duodenal biopsy reveal segments of duodenal and small intestine mucosa. Where best oriented, the mucosal villi show no sprue-like changes of significant inflammatory changes. . Sections of the gastric biopsy reveal multiple segments of gastric antral and gastric antral/body transition mucosa showing congestion and mild chronic inflammation. A properly controlled immunoperoxidase stain for Helicobacter is negative for Helicobacter organisms. . Sections of the distal esophageal biopsy reveal segments of esophagogastric and gastric mucosa showing mild to moderate chronic inflammation. The squamous esophageal mucosa is hyperplastic. The findings are consistent with reflux esophagitis. There is no evidence of Tan's change, dysplasia, or malignancy. . Sections of the terminal ileum biopsy reveal segments of small intestine mucosa focally containing mucosa associated lymphoid tissue. There are no sprue-like changes or significant inflammatory changes. . Sections of the cecal biopsy and transverse colon biopsy show no significant inflammatory changes. Sections of the ascending colon biopsy show focal active chronic colitis without granulomas or specific features. Sections of the descending colon and sigmoid colon biopsies show moderate to marked active chronic colitis without granulomas or specific features. There is extensive ulceration in the sigmoid colon biopsy. Sections of the rectal biopsy show moderate active chronic proctitis without granulomas or specific features. The inflammatory changes in the colon are consistent with chronic inflammatory bowel disease. There is no dysplasia or evidence of malignancy. (JPM/db; 05/11/2021) . Special stain performed: Immunoperoxidase stain for Helicobacter on B1 . 02 Electronically signed: . Pk Miller MD, Pathologist NPI- [id number] . 01 Gross description: . A. The specimen is submitted in formalin, labeled "Dorie Richard, small bowel biopsy". Received are 4 segments of pale harmon tissue ranging in size from 0.2 to 0.5 cm in maximum dimensions. The specimen is submitted in cassette A1. . B. The specimen is submitted in formalin, labeled "Fredi Richardi, biopsy antrum and body". Received are 5 segments of pale harmon tissue ranging in size from 0.2 to 0.5 cm in maximum dimensions. The specimen is submitted in cassette B1. . C. The specimen is submitted in formalin, labeled "Dorie Richard, biopsy distal esophagus". Received are 3 segments of pale harmon tissue ranging in size from 0.2 to 0.4 cm in maximum dimensions. The specimen is submitted in cassette C1. . D. The specimen is submitted in formalin, labeled "GalvezaethanyaFredii, biopsy terminal ileum". Received are 2 segments of pale harmon tissue ranging in size from 0.3 to 0.4 cm in maximum dimensions. The specimen is submitted in cassette D1. . E. The specimen is submitted in formalin, labeled "Galvezamaya, Dorie, cecal biopsy". Received are 2 segments of pale harmon tissue ranging in size from 0.3 to 0.5 cm in maximum dimensions. The specimen is submitted in cassette E1. . F. The specimen is submitted in formalin, labeled "Galvezamaya, Dorie, ascending colon". Received are 2 segments of pale harmon tissue ranging in size from 0.3 to 0.4 cm in maximum dimensions. The specimen is submitted in cassette F1. . G. The specimen is submitted in formalin, labeled "Galvezamaya, Dorie, transverse colon biopsy". Received are 2 segments of pale harmon tissue ranging in size from 0.2 to 0.5 cm in maximum dimensions. The specimen is submitted in cassette G1. . H. The specimen is submitted in formalin, labeled "Galvezamaya, Dorie, descending colon biopsy". Received are 4 segments of pale harmon tissue ranging in size from 0.2 to 0.4 cm in maximum dimensions. The specimen is submitted in cassette H1. . I. The specimen is submitted in formalin, labeled "Galvezamaya, Dorie, sigmoid colon biopsy". Received are 4 segments of pale harmon tissue ranging in size from 0.3 to 0.6 cm in maximum dimensions. The specimen is submitted in cassette I1. . J. The specimen is submitted in formalin, labeled "Galvezamaya, Dorie, rectal biopsy". Received are 2 segments of pale harmon tissue ranging in size from 0.1 to 0.6 cm in maximum dimensions. The specimen is submitted in cassette J1. ([facility]; 05/10/2021) NRI/NRI 05/10/2021 1757 Local . 02 Pathologist provided ICD-10: K29.50, K20.80, K52.9, K62.89 . 02 CPT . 106373, 960725, 274662, 624323, 939666, 311992, 204984, [id number], 116791, [id number], [id number] Specimen Comment: A courtesy copy of this report has been sent to [phone] Specimen Comment: [id number] Specimen Comment: Report sent to / DR. HUDDLESTON Performed at: [facility] [address] [facility] [address], [place] [id number] MD Jose Leon MD Phone: [phone] Performed at: 02 [facility] [address] [place], [place] [id number] MD Pk Miller MD Phone: [phone]
== END | disposition home or self-care (01) ==
LOC: ENDOS 09:37
PROVIDERS: ATTEND Internal Medicine Gastroenterology
DX: D50.9 Iron deficiency anemia, unspecified (principal); K52.9 Noninfective gastroenteritis and colitis, unspecified; K64.0 First degree hemorrhoids; K63.89 Other specified diseases of intestine; K21.00 Gastro-esophageal reflux disease with esophagitis, without bleeding; K31.89 Other diseases of stomach and duodenum; K29.50 Unspecified chronic gastritis without bleeding; Z90.49 Acquired absence of other specified parts of digestive tract; Z98.890 Other specified postprocedural states; Z79.899 Other long term (current) drug therapy; Z20.822 Contact with and (suspected) exposure to COVID-19
CPT/HCPCS: 43239; 45380; 81025; 87426; J2704